=== PATIENT | female | born 2000 | race Two or more races ===

== ENCOUNTER 2025-11-07 16:50 | Emergency (ER) | payer MEDICAID ==
[~2025-11-07] VITALS: Ht 165.1 cm; Wt 82.1 kg
[~2025-11-07 16:50] MED LIST: PANT40TA2 PO; SUCR1TAB31 OR; TRAZ1TAB12 PO; ZOFR4T PO
[2025-11-07 17:44] LABS: Urine Protein, UAD 2+ (Negative); Urine WBC Clumps PRESENT /hpf (None Seen)
[2025-11-07] MEDS ORDERED: SODIUM CHLORIDE 0.9% 1,000 ML IV ONE (17:45)
[2025-11-07 19:07] VITALS: PULSE 84; RESP 17; O2SAT 97
== END 2025-11-07 18:02 | disposition left against medical advice (07) ==
LOC: ER 16:50
DX: R10.9 Unspecified abdominal pain (principal); Z79.899 Other long term (current) drug therapy
CPT/HCPCS: 81001